=== PATIENT | male | born 1990 ===

== ENCOUNTER 2021-09-26 11:10 | Inpatient (IN) ==
[2021-09-26] MEDS ORDERED: NS 0.9% 1000 ml BAG 1,000 ML IV ONE (11:34)
[2021-09-26 13:08] LABS: ABS Basophils 0.1 10^3/ul (0-0.2); ABS Eosinophils 0.3 10^3/ul (0-0.6); ABS Lymphocytes 2.2 10^3/ul (1.0-4.8); ABS Monocytes 0.6 10^3/ul (0-0.8); ABS Neutrophils 7.6 10^3/ul (1.5-7.7); Eosinophil % 3.2 %; Hematocrit 39 % (42-52); Hemoglobin 12.8 g/dL (14.0-18.0); Lymphocyte % 20.2 %; Mean Corpuscular HGB Conc 33 g/dL (31-36); Mean Corpuscular Hemoglobin 24 pg (27-31); Mean Corpuscular Volume 73 fL (80-94); Mean Platelet Volume 9.8 fL (7.4-10.4); Nucleated Red Blood Cells % 0.1; Platelet Count 238 10^3/uL (150-450); Red Blood Count 5.37 10^6 /uL (4.18-5.48); Red Cell Distribution Width 16 % (10-15); White Blood Count 10.9 10^3/uL (3.5-10.8)
[2021-09-26 13:15] LABS: Activated Partial Thrombo Time 39.3 seconds (26.0-38.0); INR 1.21 (0.86-1.15)
[2021-09-26 13:23] LABS: Albumin 4.3 g/dL (3.2-5.2); Albumin/Globulin Ratio 1.3 (1-3); Calcium 9.4 mg/dL (8.6-10.3); Globulin 3.3 g/dL (2-4); HDL Cholesterol 24.4 mg/dL; Total Bilirubin 0.3 mg/dL (0.2-1.0); Total Protein 7.6 g/dL (6.4-8.9); eGFR CKD-EPI 118.6 (>60)
[2021-09-26] MEDS ORDERED: Iohexol 350 (CONTRAST) 500 ML MDV IV ONE (13:34)
[2021-09-26] MEDS ORDERED: Iodixanol (CONTRAST) 320 MG/ML 100 ML SDV IV ONE (14:08)
[2021-09-26] MEDS ORDERED: Magnesium Hydroxide LIQ 30 ML UDC PO PRN (15:13)
[2021-09-26] MEDS ORDERED: Ondansetron 4 mg VIAL 2 MG/ML 2 ml VIAL IV PRN (15:13)
[2021-09-27] MEDS: buPROPion SR 100 mg TAB.SR PO SCH (08:22)
[2021-09-28] MEDS: buPROPion SR 100 mg TAB.SR PO SCH (09:43)
[2021-09-28 12:55] LABS: ABS Basophils 0.1 10^3/ul (0-0.2); ABS Eosinophils 0.4 10^3/ul (0-0.6); ABS Lymphocytes 2.1 10^3/ul (1.0-4.8); ABS Monocytes 0.7 10^3/ul (0-0.8); Eosinophil % 3.4 %; Hematocrit 37 % (42-52); Hemoglobin 12.1 g/dL (14.0-18.0); Lymphocyte % 17.2 %; Mean Corpuscular HGB Conc 33 g/dL (31-36); Mean Corpuscular Hemoglobin 24 pg (27-31); Mean Corpuscular Volume 72 fL (80-94); Nucleated Red Blood Cells % 0.1; Platelet Count 210 10^3/uL (150-450); Red Blood Count 5.07 10^6 /uL (4.18-5.48); Red Cell Distribution Width 16 % (10-15); White Blood Count 12.3 10^3/uL (3.5-10.8)
[2021-09-29] MEDS: buPROPion SR 100 mg TAB.SR PO SCH (08:37)
[2021-09-30] MEDS: buPROPion SR 100 mg TAB.SR PO SCH (09:01)
[2021-09-30 10:17] LABS: ABS Basophils 0.1 10^3/ul (0-0.2); ABS Eosinophils 0.5 10^3/ul (0-0.6); ABS Lymphocytes 2.1 10^3/ul (1.0-4.8); ABS Monocytes 0.6 10^3/ul (0-0.8); ABS Neutrophils 9.1 10^3/ul (1.5-7.7); Eosinophil % 3.8 %; Hematocrit 38 % (42-52); Hemoglobin 12.1 g/dL (14.0-18.0); Lymphocyte % 16.8 %; Mean Corpuscular HGB Conc 32 g/dL (31-36); Mean Corpuscular Hemoglobin 24 pg (27-31); Mean Corpuscular Volume 74 fL (80-94); Nucleated Red Blood Cells % 0.1; Platelet Count 213 10^3/uL (150-450); Red Blood Count 5.08 10^6 /uL (4.18-5.48); Red Cell Distribution Width 16 % (10-15); White Blood Count 12.3 10^3/uL (3.5-10.8)
[2021-09-30] MEDS ORDERED: methylPREDNISolone 125 mg 2 ML VIAL IV ONE (15:00)
[2021-09-30] MEDS ORDERED: diPHENhydraMINE IV 50 MG/ML 1 ml VIAL (BENADRYL) IV ONE (15:00)
[2021-10-01] MEDS ORDERED: methylPREDNISolone 125 mg 2 ML VIAL IV ONE (05:34)
[2021-10-01] MEDS ORDERED: diPHENhydraMINE IV 50 MG/ML 1 ml VIAL (BENADRYL) IV ONE ×2 (05:34→21:34)
[2021-10-01] MEDS: buPROPion SR 100 mg TAB.SR PO SCH (09:52)
[2021-10-01] MEDS ORDERED: Iohexol 350 (CONTRAST) 500 ML MDV IV ONE (17:24)
[2021-10-02 06:30] LABS: Calcium 9.3 mg/dL (8.6-10.3)
[2021-10-02 06:54] LABS: Hematocrit 38 % (42-52); Hemoglobin 12.1 g/dL (14.0-18.0); Mean Corpuscular HGB Conc 32 g/dL (31-36); Mean Corpuscular Hemoglobin 24 pg (27-31); Mean Corpuscular Volume 73 fL (80-94); Mean Platelet Volume 9.6 fL (7.4-10.4); Platelet Count 232 10^3/uL (150-450); Red Blood Count 5.12 10^6 /uL (4.18-5.48); Red Cell Distribution Width 16 % (10-15)
[2021-10-02 07:39] LABS: ABS Lymphocytes 2.2 10^3/ul (1.0-4.8); ABS Monocytes 1.6 10^3/ul (0-0.8); ABS Neutrophils 22.1 10^3/ul (1.5-7.7); Eosinophil % 0.1 %; Lymphocyte % 8.5 %
[2021-10-02] MEDS: buPROPion SR 100 mg TAB.SR PO SCH (10:35)
[2021-10-02] MEDS ORDERED: COVID-19 VACCINE, TRIS(PFIZER)/PF 30 MCG/0.3 ML IM ONE (14:20)
[2021-10-03] MEDS ORDERED: Nicotine GUM 2MG FRUIT FLAVOR PO PRN (08:57)
[2021-10-03] MEDS ORDERED: Phenol 1.4% Throat Spray 177 ml BTL MT PRN (09:00)
[2021-10-03] MEDS: buPROPion SR 100 mg TAB.SR PO SCH (09:03)
[2021-10-03 10:18] LABS: Rapid COVID-19 Molecular Undetected (Undetected)
[2021-10-03 11:32] VITALS: BP 127/82
== END 2021-10-03 12:55 | DRG 45 ==
LOC: ED 11:10 → MEDTELE 20:25 → SUATTDRO 20:42 → INTOOBSV 20:42 → MEDTELE 20:42 → SUATTDRO 09-27 17:54
PROVIDERS: ADMIT Internal Medicine; ATTEND Internal Medicine